=== PATIENT | female | born 1960 | race African-American/Black ===

== ENCOUNTER 2023-06-20 17:02 | Emergency (ER) | payer OTHER ==
[2023-06-20 17:10] VITALS: BP 117/75; PULSE 85; RESP 18; TEMP 98; BMI 34.5
== END 2023-06-20 19:27 | disposition left against medical advice (07) ==
LOC: JERFT 17:02
DX: R22.0 Localized swelling, mass and lump, head (principal)
CPT/HCPCS: 99281-25

== ENCOUNTER 2023-12-12 21:26 | Emergency (ER) | payer OTHER ==
[2023-12-12 21:41] VITALS: RESP 16; TEMP 97.9; BMI 31.7
[2023-12-12] MEDS ORDERED: LIDOCAINE PATCH REMOVAL MC SCH (22:00)
[2023-12-12] MEDS ORDERED: ACETAMINOPHEN 325 MG TABLET (FP) ONE (22:14)
[2023-12-12] MEDS ORDERED: LIDOCAINE 4% PATCH TP ONE (22:15)
[2023-12-12] MEDS: LIDOCAINE 5% TOPICAL PATCH TP ONE (22:20)
[2023-12-12 22:36] LABS: BASO % 0.9 % (0-2.0); EOS % 3.8 % (0-4.5); HEMATOCRIT 34.5 % (32.4-45.2); HEMOGLOBIN 11.1 GM/dL (10.7-15.3); LYMPH % 27.2 % (8-40); MCH 25.4 pg (25.7-33.7); MCHC 32.1 g/dl (32.0-36.0); MEAN CELL VOLUME 79.1 fl (80-96); MEAN PLT VOLUME 8.5 fl (7.5-11.1); NEUT % 57.1 % (42.8-82.8); PLATELET COUNT 259 10^3/uL (134-434); RBC 4.36 M/mm3 (3.60-5.2); RDW 15.1 % (11.6-15.6); WHITE BLOOD COUNT 8.9 K/mm3 (4.0-10.0)
[2023-12-12] MEDS: ACETAMINOPHEN 500 MG TABLET (FP) PO ONE (22:36)
[2023-12-12 22:37] LABS: INR 1.05 (0.83-1.09); PROTHROMBIN TIME (PATIENT) 11.9 SEC (9.7-13.0)
[2023-12-12 22:40] LABS: ACTIVATED PTT 35.3 SECONDS (25.2-36.5)
[2023-12-12 22:58] LABS: POTASSIUM 4.9 mmol/L (3.5-5.1)
[2023-12-12 23:01] LABS: ALBUMIN 3.1 g/dl (3.4-5.0); BLOOD UREA NITROGEN 17.8 mg/dL (7-18)
[2023-12-12 23:04] LABS: CREATININE 0.8 mg/dL (0.55-1.3)
[2023-12-12 23:06] LABS: BILIRUBIN,TOTAL 0.5 mg/dL (0.2-1); TOT PROT 7.4 g/dl (6.4-8.2)
[2023-12-12 23:52] VITALS: BP 129/77; PULSE 79
[2023-12-13] LABS: HIV INTERPRETATION NEGATIVE (NEGATIVE)
== END 2023-12-12 23:50 | disposition home or self-care (01) ==
LOC: JER 21:26
DX: R07.89 Other chest pain (principal); R51.9 Headache, unspecified; M79.89 Other specified soft tissue disorders
CPT/HCPCS: 36415; 71046-TC-FY; 80053; 84484; 85025; 85610; 85730; 86803; 87389; 93005; 93010; 93970-TC; 99285-25